=== PATIENT | male | born 1955 | race Caucasian/White ===

== ENCOUNTER 2017-04-14 09:42 | Emergency (ER) | payer OTHER ==
[~2017-04-14] VITALS: Ht 182.9 cm; Wt 81.0 kg
[2017-04-14] MEDS ORDERED: GABAPENTIN 100 MG CAPSULE PO ONE (10:30)
[2017-04-14] MEDS ORDERED: SODIUM CHLORIDE 0.9% 1,000 ML IV ONE ×2 (10:30)
[2017-04-14 10:52] LABS: BASOPHILS % (AUTO) 0.5 % (0.0-2.0); EOSINOPHILS % (AUTO) 4.2 % (1.0-6.0); HEMATOCRIT 38.5 % (41-53); HEMOGLOBIN 12.6 g/dL (13.5-17.5); LYMPHOCYTES # (AUTO) 1.6 K/uL (1.0-4.8); LYMPHOCYTES % (AUTO) 15.6 % (22.0-44.0); MEAN CORPUSCULAR HGB CONC 32.8 G/dL (31.0-37.0); MEAN CORPUSCULAR VOLUME 92 fL (80-100); MONOCYTES # (AUTO) 0.8 K/uL (0.1-1.0); NEUTROPHILS # (AUTO) 7.5 K/uL (1.8-7.7); NEUTROPHILS % (AUTO) 71.7 % (40.0-70.0); PLATELET COUNT (AUTO) 378 K/uL (150-450); RED BLOOD CELL COUNT(AUTO) 4.21 MIL/uL (4.50-5.90); RED CELL DISTRIBUTION WIDTH 15.9 % (11.5-14.5); WHITE BLOOD COUNT (AUTO) 10.5 K/uL (4.5-11.0)
[2017-04-14 11:09] LABS: ALBUMIN 2.8 g/dL (3.4-5.0); BILIRUBIN,TOTAL 0.3 mg/dL (0.1-1.0); CREATININE 4.42 mg/dL (0.60-1.30); POTASSIUM 4.8 mmol/L (3.5-5.1); TOTAL PROTEIN, SERUM 7.5 g/dL (6.4-8.2)
[2017-04-14] MEDS ORDERED: CARV25 PO (11:44)
[2017-04-14] MEDS ORDERED: NICO-704 TD (11:44)
[2017-04-14] MEDS ORDERED: AMLO-512 PO (11:44)
[2017-04-14] MEDS ORDERED: INSU100I26 SQ (11:44)
[2017-04-14] MEDS ORDERED: INSU100V3 SQ (11:44)
[2017-04-14] MEDS ORDERED: NITR.4 SL (11:44)
[2017-04-14] MEDS ORDERED: OXYC-530 PO (11:44)
[2017-04-14] MEDS ORDERED: ATOR20TA86 PO (11:44)
[2017-04-14] MEDS ORDERED: TERA2 PO (11:44)
[2017-04-14] MEDS ORDERED: LEVO100 PO (11:44)
[2017-04-14] MEDS ORDERED: INSULIN REGULAR, HUMAN 100 UNITS/ML SQ ONE ×2 (11:45→13:00)
[2017-04-14 12:53] LABS: GLUCOSE,POINT OF CARE 383 MG/DL (70-110)
[2017-04-14 13:28] VITALS: BP 163/72
== END 2017-04-14 13:37 | disposition home or self-care (01) ==
LOC: EMS 09:46
DX: E11.65 Type 2 diabetes mellitus with hyperglycemia (principal); M79.1 Myalgia; I12.0 Hypertensive chronic kidney disease with stage 5 chronic kidney disease or end stage renal disease; E11.22 Type 2 diabetes mellitus with diabetic chronic kidney disease; N18.6 End stage renal disease; F17.210 Nicotine dependence, cigarettes, uncomplicated; Z99.2 Dependence on renal dialysis
CPT/HCPCS: 36415; 80053; 82962; 85025; 96372; 99284; J1815; J7030